=== PATIENT | female | born 1985 | race Two or more races ===

== ENCOUNTER 2025-03-20 14:23 | Emergency (ER) | payer OTHER ==
[~2025-03-20] VITALS: Ht 170.2 cm; Wt 59.0 kg
[2025-03-20] MEDS ORDERED: FAMOTIDINE/PF 20 MG/2 ML VIAL ONE (16:40)
[2025-03-20] MEDS ORDERED: ONDANSETRON HCL 2 MG/ML VIAL ONE (16:40)
[2025-03-20] MEDS ORDERED: ONDANSETRON HCL 2 MG/ML VIAL IV ONE (16:45)
[2025-03-20] MEDS ORDERED: 0.9 % SODIUM CHLORIDE 1,000 ML IV ONE (16:45)
[2025-03-20] MEDS ORDERED: FAMOtidine 10 MG/ML (4ML VIAL) IV ONE (16:45)
[2025-03-20 17:32] LABS: BASO % 0.3 % (0.1-1.2); EOS # 0.03 (0.04-0.54); EOS % 0.2 % (0.7-7.0); LYMPH # 0.91 (1.18-3.74); LYMPH % 7.5 % (19.3-53.1); MEAN PLATELET VOLUME 9.90 fl (9.4-12.4); MONO # 0.21 (0.24-0.82); MONO % 1.7 % (4.7-12.5); NEUT # 10.97 (1.56-6.13); NEUT % 90.0 % (34.0-71.1); RED CELL DISTRIBUTION WIDTH 11.9 % (11.6-14.4)
[2025-03-20 18:40] LABS: ALT/SGPT 26 U/L (12-78); AST/SGOT 23 U/L (15-37); BILIRUBIN TOTAL 0.58 mg/dL (0.3-1.2); BUN CREA RATIO 25 (7.0-25.0); CREATININE SERUM 0.60 mg/dL (0.55-1.02); GFR 112.49; GLOBULINA 3.8 G/DL (2.4-3.5); GLUCOSE FASTING 106 mg/dL (65-100); OSMOLALITY SERUM 279 MOSM/KG (275-295)
[2025-03-20 18:43] LABS: HCG QUANTITATIVE < 1 mUI/mL (1-3)
[2025-03-20] MEDS ORDERED: PROBIOTIC1 EAC2 PO (18:53)
[2025-03-20] MEDS ORDERED: PEPCID AC20 MG PO (18:53)
[2025-03-20] MEDS ORDERED: ZOFRAN8 MG PO (18:53)
== END 2025-03-20 19:06 | disposition home or self-care (01) ==
LOC: ER 14:23
PROVIDERS: General Practice
DX: A05.9 Bacterial foodborne intoxication, unspecified (principal)